=== PATIENT | male | born 1960 | race Caucasian/White ===

== ENCOUNTER 2020-04-05 16:56 | Emergency (ER) | payer OTHER, MEDICAID, SELFPAY ==
[2020-04-05 16:56] VITALS: BP 164/83; PULSE 88; PULSE 89; RESP 17; TEMP 36.7; O2SAT 97; O2SAT 99; BMI 24.4
--- NOTE | 2020-04-05 17:01 | CT_ITS ---
PROCEDURE: CT HEAD/BRAIN WO CON CLINICAL INDICATION: trauma Head injury with headache/pain, contusion, abrasion or hematoma COMPARISON: No exams were available for comparison TECHNIQUE: Axial images obtained. All CT scans at the facility use one or more dose reduction, viz: automated exposure control, ma/kV adjustment per patient size (including targeted exams where dose is matched to indication, i.e. head), or iterative reconstruction technique. FINDINGS: No midline shift, mass effect, intracranial hemorrhage, hydrocephalus, or extra-axial fluid collection is evident. The calvarium has an unremarkable appearance. No mastoid effusion. Mucosal thickening involves the ethmoid sinuses. IMPRESSION: No acute intracranial finding Dictated by: Andrew Aquino MD 04/06/2020 06:01 Andrew Aquino MD in [facility] 04/06/2020 06:01
--- NOTE | 2020-04-05 17:02 | CT_ITS ---
PROCEDURE: CT CERVICAL SPINE WO CON CLINICAL INDICATION: trauma Neck injury with pain, contusion/abrasion or hematoma, cervical sprain/strain the COMPARISON: CT CT HEAD/BRAIN WO CON from 04/05/2020 TECHNIQUE: Axial images obtained with sagittal and coronal reformats. All CT scans at the facility use one or more dose reduction, viz: automated exposure control, ma/kV adjustment per patient size (including targeted exams where dose is matched to indication, i.e. head), or iterative reconstruction technique. Axial spiral CT scanning performed of the cervical spine beginning at the base of the skull and continuing to the upper T-spine. 3-D multiplanar reconstruction with 3-D manipulation of volumetric data set in image rendering was completed by the radiologist and/or technologist with the supervision of the radiologist on independent workstation. FINDINGS: There is normal alignment. No acute fracture or dislocation is evident. There is mild multilevel cervical spondylosis with mild degenerative disc disease, multilevel osteophytes with endplate sclerosis and small disc osteophyte complexes. No bony canal stenosis or significant foraminal narrowing is identified. Mild paraseptal emphysema in the lung apices. Scattered small nodes are present in the neck. IMPRESSION: 1. No acute fracture. 2. Mild cervical spondylosis. Dictated by: Andrew Aquino MD 04/06/2020 06:05 Andrew Aquino MD in [facility] 04/06/2020 06:05
--- NOTE | 2020-04-05 17:02 | XR_ITS ---
PROCEDURE: XR FEMUR RT 2V CLINICAL INDICATION: trauma Pain following injury COMPARISON: No exams were available for comparison FINDINGS: No fracture or dislocation. No lytic or blastic change. There is normal mineralization. The joint spaces are well-preserved. No significant degenerative/arthritic changes. No erosive changes evident. Other findings:None. IMPRESSION: No acute findings. Dictated by: Andrew Aquino MD 04/05/2020 17:43 Andrew Aquino MD in [facility] 04/05/2020 17:43
--- NOTE | 2020-04-05 17:02 | [facility].EDGENADL ---
ED Disposition Clinical Impression: Scalp laceration Qualifiers: Encounter type: initial encounter Qualified Code(s): S01.01XA - Laceration without foreign body of scalp, initial encounter Disposition: Home, Self-Care Condition on Discharge: Good Instructions: DI for Concussion Additional Instructions: You were seen on an emergency basis. It is very important that you follow up with your primary care provider and/or specialist as we discussed within 2 days. All labs and imaging were obtained and interpreted here to rule out life threatening emergencies, but your final results should be reviewed by your primary doctor at your follow up appointment. Please return to the emergency department if any of your symptoms worsen, or if they do not improve as we discussed. Suture removal in 5 days. If you cannot follow-up with a primary physician who I referred you to, please return to this emergency department Prescriptions: cephALEXin [Keflex 500mg Cap] 500 mg PO Q6H 5 Days #20 cap Transmission Status: Pending to [facility] Referrals: Provider,MD Charly [Referring] - Vladimir May MD [Staff Physician] - - Critical Care Critical Care Time: No Attestation: On , the high probability of a clinically significant, sudden or life threatening deterioration of the following system(s) required my full and direct attention, intervention and personal management. The time I documented below is in addition to time spent performing reported procedures but includes the following listed in this critical care notation. Medical Decision Making - Medical Records Medical records reviewed: Yes: I reviewed the patient's medical records. - Braulio Inquiry Pt receiving controlled substance: No Vital Signs: 04/05/20 16:56 04/05/20 17:30 04/05/20 18:23 Temperature 98.1 F Temperature Source Oral Pulse Rate [Right Radial] 88 85 89 Respiratory Rate 17 Blood Pressure [Right Arm] 164/83 H 136/76 127/73 Blood Pressure Mean [Right Arm] 110 96 91 Blood Pressure Source [Right Arm] Automatic Cuff Automatic Cuff Automatic Cuff Blood Pressure Position [Right Arm] Sitting Sitting Sitting 02 Sat by Pulse Oximetry 97 96 99 Oxygen Delivery Method Room Air Room Air Room Air 04/05/20 18:30 Temperature Temperature Source Pulse Rate [Right Radial] 86 Respiratory Rate Blood Pressure [Right Arm] 129/68 Blood Pressure Mean [Right Arm] 88 Blood Pressure Source [Right Arm] Automatic Cuff Blood Pressure Position [Right Arm] Sitting 02 Sat by Pulse Oximetry 99 Oxygen Delivery Method Room Air Orders (Tests/Meds): ORDERS Category Date Time Status CT cervical spine wo con Stat Cat Scan 04/05/20 17:[address] head/brain wo con Stat Cat Scan 04/05/20 17:01 Taken Medical Decision Narrative: 60-year-old male presenting with head laceration secondary to a fall. Nontoxic, afebrile, hemodynamically stable, nonfocal, neuro intact. Head CT negative for intracranial pathology. CT C-spine was negative for acute disease. No other injuries. Laceration repaired. Will place on Keflex and have him follow-up for suture removal in 5 days. General Adult HPI - General Chief complaint: Head Injury Stated complaint: Head Injury Time Seen by Provider: 04/05/20 17:03 Mode of Arrival: EMS Limitations: No Limitations Description of Symptoms (Recalled from ER Triage Doc. by RN): pt states that at approx 1630 he jumped off the tailgate of a fire truck approx 3-4 foot and fell injurying his head. -loc. pt c/o head laceration. - History of Present Illness HPI narrative: 60-year-old male presenting with head injury after a three-foot mechanical fall off a fire truck landing directly on his head. He sustained a laceration to his vertex scalp that is not actively bleeding and painless. No loss of consciousness. He also has mild pain to his anterior right thigh but is full weightbearing and ambulatory. No other injury sustained. Pain-fr
[2020-04-05 17:30] VITALS: BP 136/76; PULSE 85; O2SAT 96
--- NOTE | 2020-04-05 17:33 | PC.NURSE ---
Patient gone to radiology
--- NOTE | 2020-04-05 17:46 | PC.NURSE ---
Patient back from radiology [id number]
--- NOTE | 2020-04-05 17:47 | PC.NURSE ---
Patient gone to radiology again
--- NOTE | 2020-04-05 18:03 | PC.NURSE ---
radiology studies complete. pt pending disposition.
[2020-04-05 18:23] VITALS: BP 127/73; PULSE 89; O2SAT 99
[2020-04-05 18:30] VITALS: BP 129/68; PULSE 86; O2SAT 99
[2020-04-05 18:56] VITALS: BP 125/58; PULSE 83; RESP 16; TEMP 36.8; O2SAT 98
== END 2020-04-05 19:01 | disposition home or self-care (01) ==
PROVIDERS: Emergency Provider Physician Assistant
DX: S01.01XA Laceration without foreign body of scalp, initial encounter (principal); V86.41XA Person injured while boarding or alighting from ambulance or fire engine, initial encounter; Y92.69 Other specified industrial and construction area as the place of occurrence of the external cause; Y99.0 Civilian activity done for income or pay; Z88.0 Allergy status to penicillin
CPT/HCPCS: 12002; 70450; 72125; 73552; 99283

== ENCOUNTER 2020-04-10 11:00 | Emergency (ER) | payer OTHER, MEDICAID, SELFPAY ==
[2020-04-10 11:09] VITALS: BP 127/81; PULSE 99; RESP 20; TEMP 36.2; O2SAT 99
== END 2020-04-10 11:11 | disposition home or self-care (01) ==
PROVIDERS: Emergency Provider Emergency Medicine
DX: S01.01XD Laceration without foreign body of scalp, subsequent encounter (principal)

== ENCOUNTER → 2021-06-27 16:00 | Outpatient (CLI) | payer MEDICAID, SELFPAY ==
[2021-06-27 14:16] LABS: Basophils # 0.1 K/mm3 (0-0.2); Basophils % 1.2 % (0.1-2.0); Eosinophils # 0.1 K/mm3 (0.0-0.4); Eosinophils % 1.9 % (0.1-12.0); Hematocrit 44.9 % (42.0-52.0); Hemoglobin 14.9 g/dL (14.1-18.0); Lymphocytes # 1.3 K/mm3 (0.7-4.5); Lymphocytes % 19.2 % (10-50); Mean Corpuscular HGB Conc 33.2 g/dL (31.8-35.4); Mean Corpuscular Hemoglobin 29.6 pg (27.0-31.2); Mean Corpuscular Volume 89.2 fl (80-94); Mean Platelet Volume 9.2 fl (7.4-10.4); Monocytes # 0.4 K/mm3 (0.1-1.0); Monocytes % 6.3 % (1.7-9.3); Neutrophils # 4.7 K/mm3 (1.8-7.8); Neutrophils % 71.4 % (37.0-80.0); Platelet Count 262 K/mm3 (142-424); Red Blood Count 5.03 M/mm3 (4.60-6.20); Red Cell Distribution Width 13.8 % (11.5-17.5); White Blood Count 6.6 K/mm3 (4.8-10.8)
[2021-06-27 14:17] LABS: Chloride 105 mmol/L (98-107)
[2021-06-27 14:18] LABS: Potassium 4.7 mmoL/L (3.5-5.1); Sodium 133 mmol/L (136-145)
[2021-06-27 14:20] LABS: Alanine Aminotransferase 15 U/L (12-78); Albumin Level 4.3 g/dl (3.5-5.0); Albumin/Globulin Ratio 1.7 (1.1-1.8); Alkaline Phosphatase 67 U/L (38-126); Anion Gap 13.7 mEq/L (5-15); Aspartate Amino Transferase 22 U/L (17-59); Bilirubin,Total 0.7 mg/dl (0.2-1.3); Blood Urea Nitrogen 19 mg/dl (9-20); Calcium 9.7 mg/dl (8.4-10.2); Carbon Dioxide 19 mmol/L (22.0-30.0); Cholesterol 161 mg/dl (140-200); Estimated Glomerular Filt Rate 168 ml/min (>60); GFR (African American) 203 ML/MIN (>60); Globulin 2.6 g/dL (1.3-3.2); Glucose 241 mg/dl (74-100); Total Protein,Serum 6.9 g/dl (6.3-8.2); Triglycerides 81 mg/dl (30-150); VLDL Cholesterol 16 mg/dL (0-40)
[2021-06-27 14:21] LABS: Chol/HDL Ratio 2.9 (1-3.5); HDL Cholesterol 55 mg/dl (40-60)
[2021-06-27 14:32] LABS: Direct LDL Cholesterol 101.35 mg/dL (100-129)
[2021-06-27 14:37] LABS: Free T4 (Free Thyroxine) 1.17 ng/dl (0.78-2.19)
[2021-06-27 14:51] LABS: Thyroid Stimulating Hormone 4.03 uIU/mL (0.465-4.68)
[2021-06-27 14:52] LABS: 25-OH Vitamin D, Total 23.5 ng/mL (30-100)
== END ==
PROVIDERS: Visit Provider Emergency Medicine
DX: R53.83 Other fatigue (principal); E55.9 Vitamin D deficiency, unspecified; Z79.899 Other long term (current) drug therapy
CPT/HCPCS: 80053; 80061; 82306; 84439; 84443; 85025

== ENCOUNTER → 2021-07-06 10:47 | Outpatient (CLI) | payer MEDICAID, SELFPAY ==
--- NOTE | 2021-07-06 10:50 | US_ITS ---
FINAL REPORT CLINICAL HISTORY: CLAUDICATION BLE,COLD FEET X 3 YEARS,NUMBNESS BLE'S FINDINGS: ANKLE-BRACHIAL PRESSURE INDICES Pressure indices are as follows: RIGHT LOWER EXTREMITY: Ankle-brachial pressure index: 1.08 Comments: Normal LEFT LOWER EXTREMITY: Ankle-brachial pressure index: 1.11 Comments: Normal CONCLUSION: No evidence of significant obstructive peripheral vascular disease of the lower extremities Reviewed, Interpreted and Dictated by Pito Luna III, MD Transcribed by Thi Kathleen Authenticated by Pito Luna III, MD on 07/06/2021 12:32:[address] [facility]
== END ==
PROVIDERS: PCP Emergency Medicine; Visit Provider Emergency Medicine
DX: M79.605 Pain in left leg (principal); M79.604 Pain in right leg
CPT/HCPCS: 93923

== ENCOUNTER → 2021-07-13 10:04 | Outpatient (CLI) | payer MEDICAID, SELFPAY ==
[2021-07-13 12:09] LABS: Hemoglobin A1C 10.6 % (4.0-6.0)
== END ==
PROVIDERS: Visit Provider Emergency Medicine
DX: R73.09 Other abnormal glucose (principal); Z79.84 Long term (current) use of oral hypoglycemic drugs
CPT/HCPCS: 36415; 83036

== ENCOUNTER → 2021-10-18 09:39 | Outpatient (CLI) | payer MEDICAID, SELFPAY ==
--- NOTE | 2021-10-18 09:45 | XR_ITS ---
FINAL REPORT CLINICAL HISTORY: soa FINDINGS: PA and lateral views of the chest were obtained. There is no prior exam for comparison. The cardiac and mediastinal silhouettes are within normal limits. There is emphysema with evidence of old granulomatous disease. There is no pleural effusion or pneumothorax. No acute osseous abnormality is identified. IMPRESSION: No radiographic evidence of acute cardiac or pulmonary disease. Reviewed, Interpreted and Dictated by Rosibel Pickard MD Transcribed by Shahzad Quinn Authenticated by Rosibel Pickard MD on 10/18/2021 01:23:[address] [facility]
== END ==
PROVIDERS: PCP Emergency Medicine; Visit Provider Nurse Practitioner Family
DX: R06.02 Shortness of breath (principal)
CPT/HCPCS: 71046

== ENCOUNTER → 2021-12-04 12:42 | Outpatient (CLI) | payer MEDICAID, SELFPAY ==
[2021-12-05 13:54] VITALS: BMI 20.4
== END ==
PROVIDERS: PCP Emergency Medicine; Visit Provider Nurse Practitioner Family
DX: Z71.3 Dietary counseling and surveillance (principal); E11.9 Type 2 diabetes mellitus without complications
CPT/HCPCS: 97802

== ENCOUNTER → 2022-08-31 13:59 | Outpatient (CLI) | payer MEDICAID, SELFPAY | PROVIDERS: PCP Nurse Practitioner Family; Visit Provider Nurse Practitioner Family | DX: E55.9 Vitamin D deficiency, unspecified (principal) ==

== ENCOUNTER → 2022-08-31 13:59 | Outpatient (CLI) | payer MEDICAID, SELFPAY ==
[2022-08-31 14:29] LABS: Amphetamine/Metha Screen,Urine Negative ng/ml (<1000); Barbiturates Screen,Urine Negative ng/ml (<200)
[2022-08-31 14:30] LABS: Benzodiazepines Screen,Urine Negative ng/ml (<200); Cannabinoid Screen,Urine Positive ng/ml (<50)
[2022-08-31 14:31] LABS: Cocaine Screen,Urine Negative ng/ml (<300)
[2022-08-31 14:32] LABS: Methadone Screen,Urine Negative ng/ml (<300); Opiate Screen,Urine Negative ng/ml (<300)
[2022-08-31 14:33] LABS: Phencyclidine Screen,Urine Negative ng/ml (<25)
[2022-08-31 14:44] LABS: Microalbumin/Creatinine Ratio 59.2
[2022-08-31 14:46] LABS: Alanine Aminotransferase 20 U/L (12-78); Albumin Level 4.4 g/dl (3.5-5.0); Albumin/Globulin Ratio 1.9 (1.1-1.8); Alkaline Phosphatase 51 U/L (38-126); Anion Gap 9.4 mEq/L (5-15); Aspartate Amino Transferase 23 U/L (17-59); Bilirubin,Total 0.7 mg/dl (0.2-1.3); Blood Urea Nitrogen 15 mg/dl (9-20); Carbon Dioxide 29 mmol/L (22.0-30.0); Chloride 102 mmol/L (98-107); Cholesterol 113 mg/dl (140-200); Estimated Glomerular Filt Rate 167 ml/min (>60); GFR (African American) 203 ML/MIN (>60); Globulin 2.3 g/dL (1.3-3.2); Glucose 251 mg/dl (74-100); HDL Cholesterol 57 mg/dl (40-60); Potassium 4.4 mmoL/L (3.5-5.1); Sodium 136 mmol/L (136-145); Total Protein,Serum 6.7 g/dl (6.3-8.2); Triglycerides 73 mg/dl (30-150); VLDL Cholesterol 15 mg/dL (0-40)
[2022-08-31 14:55] LABS: 25-OH Vitamin D, Total 64.1 ng/mL (30-100)
[2022-08-31 14:57] LABS: Direct LDL Cholesterol 46.46 mg/dL (100-129)
[2022-08-31 15:05] LABS: Basophils # 0.1 K/mm3 (0-0.2); Basophils % 1.1 % (0.1-2.0); Eosinophils # 0.3 K/mm3 (0.0-0.4); Eosinophils % 3.8 % (0.1-12.0); Hematocrit 46.4 % (42.0-52.0); Hemoglobin 13.9 g/dL (14.1-18.0); Lymphocytes # 1.2 K/mm3 (0.7-4.5); Lymphocytes % 16.7 % (10-50); Mean Corpuscular Hemoglobin 27.9 pg (27.0-31.2); Mean Corpuscular Volume 93.1 fl (80-94); Mean Platelet Volume 9.2 fl (7.4-10.4); Monocytes # 0.5 K/mm3 (0.1-1.0); Monocytes % 7.3 % (1.7-9.3); Neutrophils # 5.1 K/mm3 (1.8-7.8); Platelet Count 195 K/mm3 (142-424); Red Blood Count 4.99 M/mm3 (4.60-6.20); Red Cell Distribution Width 13.7 % (11.5-17.5); White Blood Count 7.1 K/mm3 (4.8-10.8)
[2022-08-31 15:14] LABS: Prostate Specific Ag Screen 0.8 ng/ml (0.0-4.0); Thyroid Stimulating Hormone 4.05 uIU/mL (0.465-4.68)
[2022-08-31 16:09] LABS: Creatinine,Urine Random 65 mg/dL (Not Estab.); Hemoglobin A1C 13.6 % (4.0-6.0)
== END ==
PROVIDERS: PCP Nurse Practitioner Family; Visit Provider Nurse Practitioner Family
DX: E11.9 Type 2 diabetes mellitus without complications (principal); I10 Essential (primary) hypertension; E55.9 Vitamin D deficiency, unspecified; R53.83 Other fatigue; Z12.5 Encounter for screening for malignant neoplasm of prostate; Z79.899 Other long term (current) drug therapy; Z79.84 Long term (current) use of oral hypoglycemic drugs
CPT/HCPCS: 80053; 80061; 80305; 82043; 82306; 82570; 83036; 84443; 85025; G0103

== ENCOUNTER 2023-07-18 12:45 | Outpatient (CLI) | payer MEDICAID, SELFPAY ==
[2023-07-18 13:10] LABS: Creatinine,Urine Random 126 mg/dL (Not Estab.)
[2023-07-18 13:15] LABS: Microalbumin/Creatinine Ratio 139.3
== END 2023-07-18 23:59 ==
LOC: LAB.DROPOF 12:46
PROVIDERS: PCP Nurse Practitioner Family; Visit Provider Nurse Practitioner Family
DX: E11.9 Type 2 diabetes mellitus without complications (principal); Z79.84 Long term (current) use of oral hypoglycemic drugs
CPT/HCPCS: 82043; 82570

== ENCOUNTER 2023-08-13 10:28 | Outpatient (CLI) | payer MEDICAID, SELFPAY ==
--- NOTE | 2023-08-13 10:37 | XR_ITS ---
FINAL REPORT CLINICAL HISTORY: L Hip Pain, no recent injury COMPARISON: None FINDINGS: An AP view of the pelvis and a frog leg views of the left hip were obtained. There is no prior exam for comparison. There is no acute fracture or dislocation. Mild degenerative changes present. Remaining osseous pelvis is within normal limits. Soft tissues are within normal limits. IMPRESSION: No acute osseous abnormality of the left hip. Mild degenerative change is present. Reviewed, Interpreted and Dictated by Pito Luna III, MD Transcribed by Gunjan Kumari Authenticated and [facility]
== END 2023-08-13 23:59 ==
LOC: RAD 10:30
PROVIDERS: PCP Nurse Practitioner Family; Visit Provider Nurse Practitioner Family
DX: M25.552 Pain in left hip (principal)
CPT/HCPCS: 73502

== ENCOUNTER 2024-03-31 19:02 | Outpatient (CLI) | payer MEDICARE, MEDICAID, SELFPAY ==
[2024-03-31 20:18] LABS: Creatinine,Urine Random 99 mg/dL (Not Estab.)
[2024-03-31 20:20] LABS: Microalbumin/Creatinine Ratio 134.5
== END 2024-03-31 23:59 | disposition home or self-care (01) ==
LOC: LAB.DROPOF 19:09
PROVIDERS: PCP Nurse Practitioner Family; Visit Provider Nurse Practitioner Family
DX: E11.9 Type 2 diabetes mellitus without complications (principal)
CPT/HCPCS: 82043; 82570

== ENCOUNTER 2024-09-04 10:57 | Outpatient (CLI) | payer MEDICARE, MEDICAID, SELFPAY ==
[2024-09-04 11:30] LABS: Basophils # 0.2 K/mm3 (0-0.2); Basophils % 2.3 % (0.1-2.0); Eosinophils # 1.1 K/mm3 (0.0-0.4); Eosinophils % 14.7 % (0.1-12.0); Hematocrit 40.8 % (42.0-52.0); Hemoglobin 12.8 g/dL (14.1-18.0); Lymphocytes # 1.2 K/mm3 (0.7-4.5); Lymphocytes % 16.3 % (10-50); Mean Corpuscular HGB Conc 31.4 g/dL (31.8-35.4); Mean Corpuscular Hemoglobin 28.9 pg (27.0-31.2); Mean Corpuscular Volume 92.1 fl (80-94); Mean Platelet Volume 10.7 fl (7.4-10.4); Monocytes # 0.7 K/mm3 (0.1-1.0); Monocytes % 9.3 % (1.7-9.3); Neutrophils # 4.2 K/mm3 (1.8-7.8); Neutrophils % 57.1 % (37.0-80.0); Nucleated Red Blood Cells # 0 10^3/uL; Nucleated Red Blood Cells % 0 %; Platelet Count 212 K/mm3 (142-424); Red Blood Count 4.43 M/mm3 (4.60-6.20); Red Cell Distribution Width-SD 47.8 fL; White Blood Count 7.3 K/mm3 (4.8-10.8)
[2024-09-04 11:39] LABS: Albumin Level 4.4 g/dl (3.5-5.0); Chloride 107 mmol/L (98-107); Potassium 4.3 mmoL/L (3.5-5.1); Sodium 142 mmol/L (136-145)
[2024-09-04 11:41] LABS: Alanine Aminotransferase 19 U/L (12-78); Anion Gap 12.3 mEq/L (5-15); Aspartate Amino Transferase 25 U/L (17-59); Blood Urea Nitrogen 17 mg/dl (9-20); Carbon Dioxide 27 mmol/L (22.0-30.0); Estimated Glomerular Filt Rate 135 ml/min (>60); GFR (African American) 163 ML/MIN (>60)
[2024-09-04 11:42] LABS: Albumin/Globulin Ratio 1.6 (1.1-1.8); Alkaline Phosphatase 50 U/L (38-126); Bilirubin,Total 0.7 mg/dl (0.2-1.3); Calcium 9.7 mg/dl (8.4-10.2); Chol/HDL Ratio 1.9 (1-3.5); Cholesterol 106 mg/dl (140-200); Globulin 2.8 g/dL (1.3-3.2); Glucose 130 mg/dl (74-100); HDL Cholesterol 57 mg/dl (40-60); Total Protein,Serum 7.2 g/dl (6.3-8.2); Triglycerides 38 mg/dl (30-150); VLDL Cholesterol 8 mg/dL (0-40)
[2024-09-04 11:53] LABS: Direct LDL Cholesterol 39.28 mg/dL (100-129)
[2024-09-04 11:58] LABS: 25-OH Vitamin D, Total 62.4 ng/mL (30-100)
[2024-09-04 12:13] LABS: Thyroid Stimulating Hormone 2.72 uIU/mL (0.465-4.68)
== END 2024-09-04 23:59 | disposition home or self-care (01) ==
LOC: LAB 10:58
PROVIDERS: PCP Nurse Practitioner Family; Visit Provider Nurse Practitioner Family
DX: G62.9 Polyneuropathy, unspecified (principal); E11.9 Type 2 diabetes mellitus without complications
CPT/HCPCS: 36415; 80053; 80061; 82306; 84443; 85025